=== PATIENT | male | born 1990 | race Caucasian/White ===

== ENCOUNTER 2017-10-07 21:06 | Emergency (ER) | payer SELFPAY ==
[2017-10-07 21:47] VITALS: BP 118/76; PULSE 89; TEMP 98.4; BMI 34.9
--- NOTE | 2017-10-07 21:47 | PDOC ---
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
--- NOTE | 2017-10-07 22:20 | PDOC ---
History of Present Illness - General Chief Complaint: Vomiting Blood Stated Complaint: VOMITIN BLOOD Time Seen by Provider: 10/07/17 21:41 - History of Present Illness Initial Comments: 10/07/17 23:17 The patient is a 26 year old male with no significant PMH who presents for evaluation of nausea, vomiting, headache, and generalized weakness. The patient reports that he donated bone marrow earlier today and has been receiving neupogen over the past 5 days. He notes that after donating today, he experienced nausea and gradual onset of severe frontal headache followed by 2 episodes of emasis. The patient reports blood with the second episode of emasis prompting his presentation to the ED for evaluation. He denies fevers, chills, SOB, chest pain, abdominal pain, or changes with urination or bowel movements. Past History - Past Medical History Allergies/Adverse Reactions: Allergies Allergy/AdvReac Type Severity Reaction Status Date / Time No Known Allergies Allergy Verified 10/07/17 21:47 Home Medications: Ambulatory Orders Ranitidine HCl 150 mg PO BID #28 tablet 10/08/17 Asthma: Yes COPD: No - Suicide/Smoking/Psychosocial Hx Smoking History: Never smoked Have you smoked in the past 12 months: No Number of Cigarettes Smoked Daily: 0 Information on smoking cessation initiated: No Hx Alcohol Use: No Drug/Substance Use Hx: No Substance Use Type: None Review of Systems - Review of Systems Comments:: 10/07/17 23:22 Constitutional: Fatigue. No fevers, chills, malaise HEENT: No Rhinorrhea, nasal congestion, visual changes Cardiovascular: No chest pain, syncope, palpitations, lightheadedness Respiratory: No Cough, SOB, Hemoptysis, Gastrointestinal: Nausea, vomiting. No Abdominal pain, Constipation, Diarrhea, Melena Genitourinary: No Dysuria, Frequency, Urgency, Hesitancy, Hematuria, Flank pain Musculoskeletal: No Myalgia, arthralgia Skin: No rashes, itching, bruising, pallor Neurologic: Headache. No Dizziness, Numbness, Weakness, or Tingling Psychiatric: No Hallucinations. No SI or HI *Physical Exam - Vital Signs Last Vital Signs Temp Pulse Resp BP Pulse Ox 98.4 F 89 18 118/76 100 10/07/17 21:43 10/07/17 21:43 10/07/17 21:43 10/07/17 21:43 10/07/17 21:43 - Physical Exam Comments: 10/07/17 23:23 General Appearance: Nourished. No Apparent Distress HEENT: EOMI, SILVA. No Pharyngeal Erythema, Tonsillar Exudate, Tonsillar Erythema Neck: No Cervical Lymphadenopathy Respiratory/Chest: Lungs Clear, Normal Breath Sounds. No Crackles, Rales, Rhonchi, Wheezing Cardiovascular: Regular Rhythm, Regular Rate. No Murmur, Gallops, Rubs Gastrointestinal/Abdominal: Normal Bowel Sounds, Soft. 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 ED Treatment Course - LABORATORY CBC & Chemistry Diagram: 10/07/17 22:39 10/07/17 22:39 Medical Decision Making - Medical Decision Making 10/07/17 23:24 The patient is a 26 year old male with no significant PMH who presents for evaluation of nausea, vomiting, headache, and generalized weakness. Given the patient's recent neupogen injections and bone marrow donation, it is likely his headache is due to stem cell stimulation and resulting in his vomiting. We will obtain a cbc, cmp, coags, type and screen here in the ED as well as a head ct to evaluate for any other etiologies. We will treat with iv fluids, reglan, toradol, and claritin here in the ED. We will continue to monitor and reassess. 10/08/17 00:02 CBC demonstrates a wbc to 59 which is expected due to the patient's neuopogen injections and recent bone marrow donation. cmp, coags are unremarkable. The patient reports significant improvement in his symptoms after medications. Patient signed out to Dr. Munroe pending head CT. Likely discharge home with primary care provider follow up. *DC/Admit/Observation/Transfer Diagnosis at time of Disposition: Headache Qualifiers: Headache type: unspecified Headache chronicity pattern: unspecified pattern Intractability: not intractable Qualified Code(s): R51 - Headache Adverse drug reaction Qualifiers: Encounter type: initial encounter Qualified Code(s): T88.7XXA - Unspecified adverse effect of drug or medicament, initial encounter Nausea & vomiting Qualifiers: Vomiting type: unspecified Vomiting Intractability: unspecified Qualified Code( s): R11.2 - Nausea with vomiting, unspecified - Discharge Dispostion Disposition: HOME Condition at time of disposition: Stable - Prescriptions Prescriptions: Ranitidine HCl 150 mg PO BID #28 tablet - Referrals Referrals: Atilio Haas MD [Staff Physician] - Hemant Cordova MD [Staff Physician] - - Patient Instructions Printed Discharge Instructions: DI for Headache Additional Instructions: Please take all meds as prescribed. Please return to the ED if you have any more vomiting of blood or bloody bowel movements. Please make an appointment to see the GI specialist. Please take claritin in addition to tylenol or motrin for persistent white. Please follow up with Joyce Baez at the [facility] Bone Marrow Transplant Team. - Post Discharge Activity
--- NOTE | 2017-10-07 22:48 | PDOC ---
Attending Attestation - HPI HPI: 10/07/17 23:47 The patient is a 26 year old male, with no significant past medical history, who presents to the emergency department with, nausea, emesis with bright red blood, and frontal headache. The patient reports that he donated bone marrow earlier this morning. The patient reports that after getting home from the bone marrow donation he began to feel very weak with a gradual onset of frontal headache and one episode of emesis with bright red blood. The patient reports he has been receiving Neupogen medication for the past 5 days for the bone marrow transplant earlier today. He denies any recent fevers, or chills. He denies any recent diarrhea or constipation. He denies any recent chest pain or shortness of breath. Allergies: NKA Documentation prepared by Maury Gamboa, acting as medical scientist for Syeda Munroe DO. - Physicial Exam PE: 10/08/17 00:57 Constitutional: Awake, alert, oriented. Head: Normocephalic. Atraumatic Eyes: PERRL. EOMI. Conjunctivae are not pale. ENT: Mucous membranes are moist and intact. Posterior pharynx without exudates or erythema. Uvula midline. Neck: Supple. Full ROM. No lymphadenopathy. Cardiovascular: Regular rate. Regular rhythm. S1, S2 regular. Distal pulses are 2+ and symmetric. Pulmonary/Chest: No evidence of respiratory distress. Clear to auscultation bilaterally No wheezing, rales or rhonchi. Abdominal: Soft and non-distended. There is no tenderness. No rebound, guarding or rigidity. No organomegaly. No palpable masses. Good bowel sounds. Back: No CVA tenderness. Musculoskeletal: No edema. No cyanosis. No clubbing. Full range of motion in all extremities. No calf tenderness. Radial/pedal pulses are intact and 2+ bilaterally Skin: Skin is warm and dry. No petechiae. No purpura. Neurological: Alert and oriented to person, place, and time. Cranial nerves II -XII are grossly intact. Normal speech. Strength is grossly symmetric. No sensory deficits. Psychiatric: Good eye contact. Normal interaction, affect and behavior. <Maury Gamboa - Last Filed: 10/08/17 00:57> - Resident Resident Name: Evaristo Green - ED Attending Attestation I have performed the following: I have examined & evaluated the patient, The case was reviewed & discussed with the resident, I agree w/resident's findings & plan, Exceptions are as noted - Medical Decision Making 10/07/17 22:48 I, Dr. Syeda Munroe, DO, attest that this document has been prepared under my direction and personally reviewed by me in its entirety. I further attest, that it accurately reflects all work, treatment, procedures and medical decision -making performed by me. 10/08/17 00:40 a/p: 26yo male with frontal white assoc with n/v after giving stem cell donation today at [facility] -Joyce Baez is coordinator for stem cell transplant at [facility] - [phone] -frontal white -no focal deficits -sensation and muscle strength intact -will check labs -has received neupogen for last few days to be able to donate today -pt with n/v and blood in vomitus - suspect celena renny tear -will check cxr head ct will monitor and reassess -suspect frontal white secondary to neupogen injections - bone pain all over reglan, benadryl, loratidine call placed to Joyce Baez to update her on symptoms 10/08/17 00:53 re-eval: pt feeling better white resolved needs xray prior to d/c 10/08/17 02:[address] negative cxr without acute findings pt has been ambulatory in the Ed stable for d/c to home will give ranitidine for rx elevated wbc secondary to neupogen use as a bmtx donor <Syeda Munroe - Last Filed: 10/08/17 02:04> Discharge Disposition - Discharge Dispostion Last Admission D/C Date: 08/10/15 Admit: No <Syeda Munroe - Last Filed: 10/08/17 02:04> - Diagnosis Headache, Adverse drug reaction, Nausea & vomiting - Discharge Dispostion Disposition: HOME Condition at time of disposition: Stable - Prescriptions Prescriptions: Ranitidine HCl 150 mg PO BID #28 tablet - Referrals Referrals: Atilio Haas MD [Staff Physician] - Hemant Cordova MD [Staff Physician] - - Patient Instructions Printed Discharge Instructions: DI for Headache Additional Instructions: Please take all meds as prescribed. Please return to the ED if you have any more vomiting of blood or bloody bowel movements. Please make an appointment to see the GI specialist. Please take claritin in addition to tylenol or motrin for persistent white. Please follow up with Joyce Baez at the [facility] Bone Marrow Transplant Team.
[2017-10-07] MEDS ORDERED: SODIUM CHLORIDE 1,000 ML IV STA (22:51)
[2017-10-07] MEDS ORDERED: KETOROLAC TROMETHAMINE 30 MG/1 ML VIAL IVPUSH ONE (22:52)
[2017-10-07] MEDS ORDERED: LORATADINE 10 MG TABLET PO ONE (22:52)
[2017-10-07] MEDS ORDERED: METOCLOPRAMIDE HCL INJECTION 10 MG/2 ML VIAL IVPUSH ONE (22:52)
[2017-10-07] MEDS ORDERED: METOCLOPRAMIDE HCL INJECTION 10 MG/2 ML VIAL ONE (23:01)
[2017-10-07] MEDS ORDERED: LORATADINE 10 MG TABLET ONE (23:01)
[2017-10-07] MEDS ORDERED: KETOROLAC TROMETHAMINE 30 MG/1 ML VIAL ONE (23:02)
[2017-10-07 23:03] LABS: HEMATOCRIT 41.8 % (35.4-49); HEMOGLOBIN 13.5 GM/dL (11.7-16.9); MCH 27.6 pg (25.7-33.7); MCHC 32.2 g/dl (32.0-35.9); MEAN CELL VOLUME 85.8 fl (80-96); MEAN PLT VOLUME 7.3 fl (7.5-11.1); PLATELET COUNT 248 K/MM3 (134-434); RBC 4.87 M/mm3 (4.00-5.60); RDW 13.4 % (11.9-15.9)
[2017-10-07 23:17] LABS: WHITE BLOOD COUNT 59.1 K/mm3 (4.0-10.0)
[2017-10-07 23:24] LABS: INR 1.13 (0.82-1.09); PROTHROMBIN TIME (PATIENT) 12.8 SEC (9.98-11.88)
[2017-10-07 23:26] LABS: ACTIVATED PTT 30.5 SECONDS (26.9-34.4)
[2017-10-07 23:34] LABS: ALBUMIN 3.8 g/dl (3.4-5.0); ANION GAP 12 (8-16); BILIRUBIN,TOTAL 0.5 mg/dL (0.2-1.0); BLOOD UREA NITROGEN 12 mg/dL (7-18); CHLORIDE 102 mmol/L (98-107); CO2 28 mmol/L (21-32); CREATININE 0.8 mg/dL (0.7-1.3); GLUCOSE,RANDOM 85 mg/dL (74-106); POTASSIUM 3.8 mmol/L (3.5-5.1); SGOT/AST 39 U/L (15-37); SGPT/ALT 55 U/L (12-78); SODIUM 142 mmol/L (136-145); TOT PROT 7.4 g/dl (6.4-8.2)
[2017-10-07 23:35] LABS: ALK PHOS 367 U/L (45-117)
== END 2017-10-08 02:11 | disposition home or self-care (01) ==
LOC: JER 21:06
PROC: 3E0337Z Introduction of Electrolytic and Water Balance Substance into Peripheral Vein, Percutaneous Approach (ICD-10-PCS; principal; 2017-10-07)
PROC: 3E0333Z Introduction of Anti-inflammatory into Peripheral Vein, Percutaneous Approach (ICD-10-PCS; 2017-10-07)
PROC: 3E033GC Introduction of Other Therapeutic Substance into Peripheral Vein, Percutaneous Approach (ICD-10-PCS; 2017-10-07)
DX: Z52.3 Bone marrow donor (principal); R51 Headache; T45.8X5A Adverse effect of other primarily systemic and hematological agents, initial encounter; Y92.018 Other place in single-family (private) house as the place of occurrence of the external cause
CPT/HCPCS: 36415; 70450-TC; 71046-TC-FY; 80053; 85025; 85610; 85730; 86850; 86900; 86901; 99283-25